=== PATIENT | female | born 1945 | race Caucasian/White ===

== ENCOUNTER → 2016-10-20 | Outpatient (CLI) | payer MEDICARE ==
[~2016-10-20] MED LIST: ALPR0.254 PO; ATOR10TA9 PO; CALC1CAP7 PO; CARB1TAB47 PO; CHOL10003 PO; IBAN150T4 PO; KRIL1CAP9 PO; LACT1CAP35 PO; LEVO137T3 PO; MULT-257 PO; NORT50CA PO; POLY17PO5 PO; PRAM0.255 PO; PREG300C PO; RIVA1PAT23 TD; SELE5TAB2 PO; VALS160T3 PO
== END | disposition home or self-care (01) ==
LOC: CFH 12:01
PROVIDERS: ATTEND Family Medicine
DX: Z12.31 Encounter for screening mammogram for malignant neoplasm of breast (principal); M81.0 Age-related osteoporosis without current pathological fracture; Z98.82 Breast implant status
CPT/HCPCS: G0202

== ENCOUNTER → 2016-10-27 | Outpatient (CLI) | payer MEDICARE, OTHER | END | disposition home or self-care (01) | LOC: CFH 11:03 | PROVIDERS: ATTEND Family Medicine | DX: Z13.820 Encounter for screening for osteoporosis (principal); M81.0 Age-related osteoporosis without current pathological fracture | CPT/HCPCS: 77080 ==

== ENCOUNTER → 2018-12-04 | Outpatient (CLI) | payer MEDICARE, OTHER ==
[~2018-12-04] MED LIST changes: -NORT50CA PO; +NORT50CA52 PO
== END | disposition home or self-care (01) ==
LOC: CFH 09:19
PROVIDERS: ATTEND Family Medicine
DX: Z12.31 Encounter for screening mammogram for malignant neoplasm of breast (principal); M81.0 Age-related osteoporosis without current pathological fracture
CPT/HCPCS: 77080; 77067

== ENCOUNTER → 2021-01-12 | Outpatient (CLI) | payer MEDICARE, OTHER ==
[~2021-01-12] MED LIST changes: +IBAN150T20 PO; -IBAN150T4 PO; +SELE5TAB PO; -SELE5TAB2 PO
== END | disposition home or self-care (01) ==
LOC: CFH 09:16
PROVIDERS: ATTEND Family Medicine
DX: Z12.31 Encounter for screening mammogram for malignant neoplasm of breast (principal); M81.0 Age-related osteoporosis without current pathological fracture
CPT/HCPCS: 77067; 77080